=== PATIENT | male | born 1955 | race Caucasian/White ===

== ENCOUNTER 2023-08-26 16:25 | Emergency (ER) | payer MEDICARE, BC ==
[~2023-08-26] VITALS: Ht 172.7 cm; Wt 81.8 kg
[~2023-08-26 16:25] MED LIST: ATOR40TA PO; GLIP10TA11 PO; LANTUS SQ; LISI5TAB22 PO; RIVA15TA PO
[2023-08-26] MEDS: ondansetron 4mg rapidly disintigrating tab PO ONE (16:36)
[2023-08-26] MEDS: HYDROcodone/acetaminophen 10/325mg tab PO ONE (16:39)
[2023-08-26] MEDS: TETanus/Pertussis (Acell)/Diphther VAC/PF (Tdap-Adult) 0.5ml syringe IMVAC ONE (16:43)
[2023-08-26] MEDS: ceFAZolin/D5W- 1GM premix 50 ML IV ONE (17:26)
[2023-08-26] MEDS: LIDOcaine 1% W/epiNEPHrine 1:100,000 20ml vial SQ ONE (17:27)
[2023-08-26 18:06] VITALS: PULSE 71
[2023-08-26] MEDS ORDERED: CEPH-585 PO (18:35)
[2023-08-26] MEDS ORDERED: HYDR-3965 PO (18:35)
[2023-08-26 18:59] VITALS: BP 129/57; RESP 18; TEMP 98; O2SAT 98
[2023-08-27] MEDS ORDERED: ceFAZolin/D5W- 1GM premix 50 ML IV SCH
== END 2023-08-26 19:01 | disposition home or self-care (01) ==
LOC: ER 16:25
DX: S81.812A Laceration without foreign body, left lower leg, initial encounter (principal); J45.909 Unspecified asthma, uncomplicated; Z79.899 Other long term (current) drug therapy; Z79.84 Long term (current) use of oral hypoglycemic drugs; W29.3XXA Contact with powered garden and outdoor hand tools and machinery, initial encounter; Y93.89 Activity, other specified; Y92.89 Other specified places as the place of occurrence of the external cause; Y99.8 Other external cause status
CPT/HCPCS: 12032; 73610; 90471; 90715; 96365; 99284; A6223; J0690; J3490; J7030; L4360; A6258; A6446; A6449